=== PATIENT | male | born 1955 | race Caucasian/White ===

== ENCOUNTER → 2016-11-11 | Outpatient (CLI) | payer OTHER ==
--- NOTE | 2016-11-11 15:10 | CPEKG ---
Heart Rate: 78 RR Interval: 769 P-R Interval: 192 QRSD Interval: 94 QT Interval: 392 QTC Interval: 447 P Shirland: 55 QRS Shirland: 41 T Wave Shirland: 58 EKG Severity - NORMAL ECG - EKG Impression: SINUS RHYTHM Electronically Signed By: Eryn Cummings 11-Nov-2016 16:06:35
== END ==
LOC: FCP 14:59
PROVIDERS: ATTEND Specialist
DX: Z01.810 Encounter for preprocedural cardiovascular examination (principal)

== ENCOUNTER 2017-01-26 18:05 | Inpatient (IN) | payer OTHER ==
--- NOTE | 2017-01-26 18:26 | EDPHY ---
H & P Stated Complaint: SI Time Seen by Provider: 01/26/17 18:24 - Personal History Current Tetanus/Diphtheria Vaccine: Yes Current Tetanus Diphtheria and Acellular Pertussis (TDAP): Yes - Medical/Surgical History Hx Asthma: No Hx Chronic Respiratory Disease: No Hx Diabetes: No Hx Cardiac Disease: No Hx Renal Disease: No Hx Cirrhosis: No Hx Alcoholism: No Hx HIV/AIDS: No Hx Splenectomy or Spleen Trauma: No Other PMH: GERD, depression, cholesterol, chronic pain - Social History Smoking Status: Former smoker Constitutional: Initial Vital Signs Temperature (C) 36.5 C 01/26/17 18:08 Heart Rate 67 01/26/17 18:08 Respiratory Rate 14 01/26/17 18:08 Blood Pressure 142/80 H 01/26/17 18:08 O2 Sat (%) 95 01/26/17 18:08 O2 Delivery Mode Room Air Allergies/Adverse Reactions: Penicillins Allergy (Unknown, Verified 09/28/15 15:36) Home Medications: Medication Instructions Recorded Aspirin EC [Aspirin EC 81 mg (*)] 81 mg PO DAILY 01/26/17 FLUoxetine [Prozac 20 MG (*)] 60 mg PO DAILY 01/26/17 Gabapentin [Neurontin 300 MG (*)] 300 - 600 mg PO TID PRN 01/26/17 Herbals/Supplements -Info Only 1 ea PO DAILY 01/26/17 Zolpidem Tartrate [Ambien 10 mg] 10 mg PO HS PRN 01/26/17 buPROPion XL [Wellbutrin Xl] 150 mg PO DAILY 01/26/17 clonazePAM [Klonopin (*)] 0.5 mg PO TID PRN 01/26/17 lamoTRIgine [LamICTAL 100 MG (*)] 300 mg PO HS 01/26/17 Medical Decision Making ED Course/Re-evaluation: CHIEF COMPLAINT: Psychiatric evaluation HISTORY OF PRESENT ILLNESS: Patient with longstanding depression who states that his depression has been getting worse. There are some circumstances regarding recent separation from his and some difficulty raising his teenage son. He denies suicidality. He denies a plan for suicidality. He has never attempted suicide. He is calmed. Well-kept. Relaxed. And very cooperative. REVIEW OF SYSTEMS: A 10 point review of systems was performed and is negative with the exception of the elements mentioned in the history of present illness. PHYSICAL EXAM: General Appearance: Alert, well hydrated, appropriate, and non-toxic appearing. Head: Atraumatic without scalp tenderness or obvious injury Eyes: Pupils equal, round, reactive to light and accommodation, EOMI, no trauma , no injection. Ears: Clear bilaterally, no perforation, normal landmarks Nose: Atraumatic, no rhinorrhea, clear. Throat: There is no erythema or exudates, no lesions, normal tonsils, mucus membranes moist. Neck: Supple, 2+ carotid upstroke, nontender, no lymphadenopathy. Respiratory: No retractions, no distress, no wheezes, and no accessory muscle use. Lungs are clear to auscultation bilaterally. Cardiovascular: Regular rate and rhythm, no murmurs, rubs, or gallops. Bilateral carotid, radial, dorsalis pedis, and posterior tibial pulses intact. Good capillary refill all extremities. Gastrointestinal: Abdomen is soft, nontender, non-distended, no masses, no rebound, no guarding, no peritoneal signs. Musculoskeletal: Normal active ROM of all extremities, atraumatic. Neurological: Alert, appropriate, and interactive. The patient has normal DTRs and non-focal cranial nerves, motor, sensory, and cerebellar exam. Skin: No rashes, good turgor, no nodules on palpation. Past medical history: Depression Past surgical history: Noncontributory Family history: Noncontributory Social history: Recently , does not abuse tobacco drugs or alcohol, employed DIFFERENTIAL DIAGNOSIS: The differential diagnosis for the patient's depression included but was not limited to functional and major depression, situational depression, medication side effect, drugs, and alcohol abuse. MEDICAL DECISION MAKING: Patient is in no acute distress and is hemodynamically stable. We are awaiting psychiatric team's evaluation. Patient has known history of psychiatric disorders and is here for evaluation. I feel like this patient can most likely be treated as an outpatient but we will have him evaluated to make a final determination. He is well kept clean and making good decisions and not using abuse of substances. - Data Points Laboratory Results: Laboratory Results 01/26/17 18:34 01/26/17 18:34 01/26/17 01/26/17 01/26/17 18:51 18:34 18:34 WBC 7.62 10^3/uL 10^3/uL (3.80-9.50) RBC 5.33 10^6/uL 10^6/uL (4.40-6.38) Hgb 14.7 g/dL g/dL (13.7-17.5) Hct 44.1 % % (40.0-51.0) MCV 82.7 fL fL (81.5-99.8) MCH 27.6 pg L pg (27.9-34.1) MCHC 33.3 g/dL g/dL (32.4-36.7) RDW 15.3 % H % (11.5-15.2) Plt Count 244 10^3/uL 10^3/uL (150-400) MPV 10.3 fL fL (8.7-11.7) Neut % (Auto) 60.5 % % (39.3-74.2) Lymph % (Auto) 27.7 % % (15.0-45.0) Bonner % (Auto) 7.6 % % (4.5-13.0) Eos % (Auto) 3.0 % % (0.6-7.6) Baso % (Auto) 0.8 % % (0.3-1.7) Nucleat RBC Rel Count 0.0 % % (0.0-0.2) Absolute Neuts (auto) 4.61 10^3/uL 10^3/uL (1.70-6.50) Absolute Lymphs (auto) 2.11 10^3/uL 10^3/uL (1.00-3.00) Absolute Monos (auto) 0.58 10^3/uL 10^3/uL (0.30-0.80) Absolute Eos (auto) 0.23 10^3/uL 10^3/uL (0.03-0.40) Absolute Basos (auto) 0.06 10^3/uL 10^3/uL (0.02-0.10) Absolute Nucleated RBC 0.00 10^3/uL 10^3/uL (0-0.01) Immature Gran % 0.4 % % (0.0-1.1) Immature Gran # 0.03 10^3/uL 10^3/uL (0.00-0.10) Sodium 138 mEq/L mEq/L (134-144) Potassium 4.4 mEq/L mEq/L (3.5-5.2) Chloride 104 mEq/L mEq/L (97-110) Carbon Dioxide 23 mEq/l mEq/l (22-31) Anion Gap 11 mEq/L mEq/L (8-16) BUN 20 mg/dL mg/dL (7-23) Creatinine 1.1 mg/dL mg/dL (0.7-1.3) Estimated GFR > 60 Glucose 82 mg/dL mg/dL (70-100) Calcium 9.4 mg/dL mg/dL (8.5-10.4) Salicylates < 1.0 mg/dL L mg/dL (2.0-20.0) Urine Opiates Screen NEGATIVE (NEGATIVE) Acetaminophen < 10 mcg/mL L mcg/mL (10.0-30.0) Urine Barbiturates NEGATIVE (NEGATIVE) Ur Phencyclidine Scrn NEGATIVE (NEGATIVE) Ur Amphetamine Screen NEGATIVE (NEGATIVE) U Benzodiazepines Scrn NEGATIVE (NEGATIVE) Urine Cocaine Screen NEGATIVE (NEGATIVE) U Marijuana (THC) Screen NEGATIVE (NEGATIVE) Ethyl Alcohol < 10 mg/dL mg/dL (0-10) Medications Given: Discontinued Medications Lorazepam (Ativan) 1 mg PO EDNOW ONE Stop: 01/26/17 19:22 Last Admin: 01/26/17 19:21 Dose: 1 mg Departure - Departure Disposition: Other Psych, Not Angelica Clinical Impression: Severe major depression, Suicidal ideation Condition: Fair Referrals: Randy Chan MD [Primary Care Provider] - As per Instructions
[2017-01-26 18:46] LABS: % IMMATURE GRANULYOCYTES 0.4 % (0.0-1.1); ABSOLUTE IMMATURE GRANULOCYTES 0.03 10^3/uL (0.00-0.10); ADD DIFF? NO; ADD MORPH? NO; ADD SCAN? NO; ATYPICAL LYMPHOCYTE FLAG 0 (0-99); FRAGMENT RBC FLAG 0 (0-99); HEMATOCRIT 44.1 % (40.0-51.0); HEMOGLOBIN 14.7 g/dL (13.7-17.5); LEFT SHIFT FLG 0 (0-99); LIPEMIA HEMOLYSIS FLAG 80 (0-99); MEAN CELL HEMOGLOBIN 27.6 pg (27.9-34.1); MEAN CELL HEMOGLOBIN CONCENTR. 33.3 g/dL (32.4-36.7); MEAN CELL VOLUME 82.7 fL (81.5-99.8); MEAN PLATELET VOLUME 10.3 fL (8.7-11.7); PLATELET CLUMPS FLAG 10 (0-99); PLATELET COUNT 244 10^3/uL (150-400); RED BLOOD CELL COUNT 5.33 10^6/uL (4.40-6.38); RED CELL DISTRIBUTION WIDTH 15.3 % (11.5-15.2)
[2017-01-26] MEDS ORDERED: LORazepam 1 MG TAB ONE (18:48)
[2017-01-26] MEDS ORDERED: LORazepam 1 MG TAB PO ONE (19:21)
[2017-01-26 19:30] LABS: ANION GAP 11 mEq/L (8-16); CALCIUM 9.4 mg/dL (8.5-10.4); CARBON DIOXIDE 23 mEq/l (22-31); CHLORIDE 104 mEq/L (97-110); CREATININE 1.1 mg/dL (0.7-1.3); ETHANOL SERUM < 10 mg/dL (0-10); GLOMERULAR FILTRATION RATE > 60; GLUCOSE 82 mg/dL (70-100); POTASSIUM 4.4 mEq/L (3.5-5.2); SALICYLATE < 1.0 mg/dL (2.0-20.0); SODIUM 138 mEq/L (134-144)
[2017-01-26] MEDS ORDERED: ACETAMINOPHEN 325 MG TAB PO PRN (22:30)
[2017-01-26] MEDS ORDERED: LORazepam 0.5 MG TAB PO PRN (22:30)
[2017-01-26] MEDS ORDERED: NICOTINE POLACRILEX 2 MG GUM B PRN (23:38)
[2017-01-26] MEDS ORDERED: GABAPENTIN 300 MG CAP PO SCH (23:45)
[2017-01-26] MEDS: clonazePAM 0.5 MG TAB PO SCH (23:55)
[2017-01-27] MEDS: ASPIRIN EC 81 MG TAB PO SCH (08:54)
[2017-01-27] MEDS: clonazePAM 0.5 MG TAB PO SCH ×4 (08:54→21:32)
[2017-01-27] MEDS ORDERED: NON-FORMULARY NEW DRUG (Zolpidem Tartrate [Ambien 10 Mg] 10 MG) PO PRN (11:08)
[2017-01-27] MEDS ORDERED: FLUoxetine 20 MG CAP PO SCH ×2 (11:15→11:42)
[2017-01-27] MEDS ORDERED: IBUPROFEN 600 MG TAB PO PRN (11:45)
[2017-01-27] MEDS: buPROPion XL 150 MG TAB PO SCH (12:20)
[2017-01-27] MEDS: FLUoxetine 20 MG CAP PO SCH (12:20)
[2017-01-27] MEDS: GABAPENTIN 300 MG CAP PO SCH ×2 (16:34→21:32)
--- NOTE | 2017-01-27 16:46 | BAPA ---
[f rep st] ADMISSION PSYCHIATRIC ASSESSMENT DATE OF SERVICE: 01/27/2017 CHIEF COMPLAINT: "I think I got depressed again." HISTORY OF PRESENT ILLNESS: Patient is a 61-year-old, male, with a history of recurrent m ajor depression. He had taken a combination of Prozac and Wellbutrin for 5 or 6 years and states th at his mood had been generally stable. [facility] and he recently switched to seeing a local nurse practitioner, Yvette Duarte, who told him, per his report, that "those medica tions were inappropriate." He states that they had decreased the Prozac from 60 mg to 20 mg and the Wellbutrin XL from 300 mg to 150 mg and that he has noticed about 3-4 weeks of declining mood. The y started Lamictal prior to this and increased to 300 mg to help with his mood, both stability and q uality but also for his "impulsive explosive anger." He states that this is a longstanding trait fo r him but that it has been worse recently and even worse since his mood has been declining. He stat es that it occurs mostly at home but has occurred at work and he will experience a trigger typically in an interpersonal conflict. He states that he will then become "verbally aggressive and go from 0-60 in a second." He states that he has never been physical or destroyed any property but that he will yell and become very angry over relatively minor issues. He states that he then will calm down and anger will resolve fairly quickly also and he will feel guilty and ashamed. He states that thi s has been a primary issue in his relationship with his and that they have actually decided to separate recently in order to re-evaluate the relationship. He states this has been a stressor for him as well in thinking of doing that and that he has been sad over the implications of that for his marriage as well as his relationship with his 15-year-old son. He describes having had some thoughts of suicide which he describes as "kind of fantasies" in which he envisions driving his motorcycle into a bridge abutment "so my son won't know it was suicide." Mary mariscal expressed this to his therapist yesterday who advised that he come to the emergency department. Mary mariscal was evaluated by [facility] in the emergency department, found to meet criteria for admission. He was pl aced on an M1 hold and transferred to [address] [place] [address] for further evaluation. Today, he states that he wants to have his medications looked at and that he does not believe he is an imminent danger to himself but definitely wants to get back to feeling better. In addition to hi s depressed mood, he notes marginal energy and motivation and poor sleep without his medications. 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 PAST PSYCHIATRIC HISTORY: The [facility] He has most recently seen Yvette Duarte though states he intends to find a different practitioner. He sees César jackson or individual psychotherapy and he and his also see a couples therapist. He has had no previous psychiatric hospitalizations or suicide attempts. He had a remote alcohol an d drug treatment program which he completed after 28 days. He has previously taken Prozac, Wellbutr in, Zoloft, Lexapro, Cymbalta and Seroquel. He has not had trials of Abilify, lithium or Depakote. ALLERGIES: Penicillin. CURRENT MEDICATIONS: Prozac 20 mg daily, Wellbutrin XL 150 mg daily, clonazepam 0.5 mg at 1800 and h.s., Lamictal 300 mg h.s., gabapentin 600 mg three times daily, Ambien 10 mg h.s., and baby aspirin 1 a day. PAST MEDICAL HISTORY: Significant for hypertension and some chronic radicular back pain. SOCIAL HISTORY: Patient moved to [place] 2 years ago with his and son from [place]. He states that this was a lifestyle change as they felt like their son would have better experience and an ov erall safer environment in [place]. 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 He was born in [facility] but raised in [place] [facility]. He states he moved a lot as a child. He was in the [employer] for 3 years and has VA benefits with no service connection. He enjoys riding his [employer] [employer]. SUBSTANCE ABUSE HISTORY: Patient has remote history of alcohol and some drug use. 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 FAMILY HISTORY: Patient's mother and maternal grandfather suffer from depression. There is no fami ly history of suicide obtained. ADMISSION LABORATORY: CBC shows no significant abnormalities. Serum chemistries are normal. Urine drug screen is negative for all substances. Alcohol is less than detectable. MENTAL STATUS EXAMINATION: Reveals a healthy-appearing, adequately groomed, calm and cooperative [place] charline[place] male. He interacts well with the examiner, displaying good eye contact and overall normal s ocial skills. His affect is blunted, somewhat dysphoric, stable and appropriate. His mood is descr ibed as "depressed." His thought process is linear and goal directed. His thought content reveals no evidence of psychosis. He is alert and oriented to person, place, time, and situation, and his s ensorium is clear. His intellect appears to be average to above average as evidenced by his educati onal, occupational history, fund of knowledge, and vocabulary. He denies any active thoughts of ronak cide at this time. His insight and judgment appear to be good. IMPRESSION: Major depressive disorder, recurrent, severe without psychosis. Pending separation fro m , financial problems, occupational stress, possible family conflicts. Patient is a 61-year-old, male, with a history of recurrent major depression. He seems to have suffered a recurrence in the setting of significant psychosocial stress and then also simultan eously decreasing his antidepressants. I questioned whether they may have been considering a bipola r disorder though the patient does not think so. I do not elicit convincing symptoms of bipolar ill ness at this time. I reviewed with the patient potential options and he states he believes he did b est on his previous regimen. He prefers to go back to 300 mg of the Wellbutrin XL and 40 mg of the fluoxetine at this time. We will continue his other medicines as they are though. I have discussed with him the relative redundancy of the 3 HARPREET active agents and the possibility of consolidating t hese to at least 2. I believe this is a goal for outpatient treatment and is certainly not pressing at this time. Will engage in individual, group, and milieu psychotherapies and serial clinical int erviews to better understand his current level of dangerousness. He is on a 72 hour hold and I sofya mccann that he will be active in the treatment process. Estimated length of stay is 2-3 days. /[id number]/MODL
--- NOTE | 2017-01-27 18:47 | BCON ---
[f rep st] BEHAVIORAL HEALTH CONSULTATION INTERNAL MEDICINE CONSULTATION DATE OF CONSULTATION: 01/27/2017 REFERRING PHYSICIAN: Marianne Duong MD REASON FOR CONSULTATION: Medical clearance for inpatient behavioral health stay. HISTORY OF PRESENT ILLNESS: The patient came to the emergency department complaining of depression, which has been getting worse. He was evaluated by the mental health team and admitted for further psychiatric care. He currently is without any acute complaints. PAST MEDICAL HISTORY: 1. Anemia with considerable evaluation by drafter landscape, Dr. Jimenez. 2. Dyslipidemia. 3. Skin cancer. 4. 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 PAST SURGICAL HISTORY: He has had skin cancer excisions and he has had a reconstruction of his right thumb metacarpophalangeal joint. MEDICATIONS: Prior to admission. 1. Gabapentin 300-600 mg p.o. t.i.d. p.r.n. 2. Lamotrigine 300 mg p.o. q.h.s. 3. Clonazepam 0.5 mg p.o. t.i.d. p.r.n. 4. Bupropion XL 150 mg p.o. q. day. 5. Fluoxetine 60 mg p.o. q. day. 6. Zolpidem 10 mg p.o. q.h.s. p.r.n. 7. Aspirin 81 mg p.o. q. day. 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 He has a remote history of smoking and quit a long time ago. FAMILY HISTORY: Noncontributory. REVIEW OF SYSTEMS: A 10-point Review of Systems was conducted and was negative. PHYSICAL EXAM: VITAL SIGNS: Blood pressure is 127/84, heart rate is 61, respiratory rate is 12, oxygen saturation is 93% on room air, temperature is 36.2 degrees centigrade. His weight is 90.7 kg for a body mass index of 29.5. GENERAL: This is an overweight man, appears his chronologic age, cooperative, and in no acute distress. HEENT: Extraocular movements are intact. Pupils are equal, round, and reactive to light. Mucous membranes are moist. Dentition is in good condition. NECK: Supple. HEART: There is a regular rate and rhythm with no murmurs, rubs, or gallops. LUNGS: Clear to auscultation bilaterally. ABDOMEN: Soft, nontender, nondistended with normoactive bowel sounds. EXTREMITIES: There is no cyanosis, clubbing, or edema. He wears a soft splint on his right hand and wrist. There is a well-healed surgical incision over the right thumb metacarpophalangeal joint on the volar aspect. NEUROLOGIC: He is alert and oriented x3. Cranial nerves 2-12 are grossly intact. There is no focal weakness and sensation is intact to light touch. LABORATORY STUDIES: Drawn in the emergency department. CBC was overall within normal limits. He had a slight decrement of mean cellular hemoglobin and an elevated RDW. Serum chemistry revealed normal renal function and electrolytes. Toxicology screen in the serum was negative for salicylates, acetaminophen, or ethyl alcohol, and the urine was negative for any substances of abuse. ASSESSMENT/RECOMMENDATIONS: 1. Mental health issues pending further evaluation and management per Psychiatry and the mental health team. 2. Dyslipidemia. This was not at the threshold to benefit from statin medications. 3. Overweight status. 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 Given his history of dyslipidemia, it is in his best interest in terms of his health to not gain weight. Consider caution regarding psychiatric medications which would cause weight gain. However, his psychosocial stabilization is his primary priority. 4. Anemia has resolved. The large RDW indicates that he may have still activated bone marrow. This is consistent with a prior evaluation which showed an elevated erythropoietin. He is planning a colonoscopy to seek a source of blood loss. I see no medical contraindications to the patient's continued stay on the inpatient behavioral health unit or to any psychiatric medications or procedures. Thank you very much for including me in the care of this patient and please do not hesitate to contact me or the hospitalist service should there be a need for further medical evaluation. /[id number]/MODL MTDD
[2017-01-27] MEDS: lamoTRIgine 100 MG TAB PO SCH (21:31)
[2017-01-27] MEDS: ZOLPIDEM TARTRATE 5 MG TAB PO PRN (21:38)
[2017-01-28] MEDS: ASPIRIN EC 81 MG TAB PO SCH (08:40)
[2017-01-28] MEDS: buPROPion XL 150 MG TAB PO SCH (08:40)
[2017-01-28] MEDS: GABAPENTIN 300 MG CAP PO SCH ×3 (08:40→21:39)
[2017-01-28] MEDS: FLUoxetine 20 MG CAP PO SCH (08:41)
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
[2017-01-28] MEDS: clonazePAM 0.5 MG TAB PO SCH ×2 (16:33→21:39)
[2017-01-28] MEDS: lamoTRIgine 100 MG TAB PO SCH (21:39)
[2017-01-28] MEDS: ZOLPIDEM TARTRATE 5 MG TAB PO PRN (21:40)
[2017-01-29 06:05] VITALS: BP 114/74; PULSE 64; RESP 12; TEMP 97.5; O2SAT 94
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
[2017-01-29] MEDS: ASPIRIN EC 81 MG TAB PO SCH (08:53)
[2017-01-29] MEDS: buPROPion XL 150 MG TAB PO SCH (08:53)
[2017-01-29] MEDS: GABAPENTIN 300 MG CAP PO SCH (08:53)
[2017-01-29] MEDS: FLUoxetine 20 MG CAP PO SCH (08:53)
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
== END 2017-01-29 13:30 | disposition home or self-care (01) | DRG 885 ==
LOC: BBEH 23:10
PROVIDERS: ADMIT Psychiatry & Neurology Behavioral Neurology & Neuropsychiatry; ATTEND Psychiatry & Neurology Behavioral Neurology & Neuropsychiatry
DX: F33.2 Major depressive disorder, recurrent severe without psychotic features (principal); E78.5 Hyperlipidemia, unspecified; E66.3 Overweight; Z85.820 Personal history of malignant melanoma of skin
CPT/HCPCS: 80305; G0480

== ENCOUNTER → 2018-08-22 | Outpatient (CLI) | payer OTHER | LOC: FIMAGING 15:19 | PROVIDERS: ATTEND Family Medicine | DX: K40.90 Unilateral inguinal hernia, without obstruction or gangrene, not specified as recurrent (principal); N28.1 Cyst of kidney, acquired; M47.815 Spondylosis without myelopathy or radiculopathy, thoracolumbar region ==

== ENCOUNTER 2018-09-25 11:46 | Day surgery (SDC) | payer OTHER ==
--- NOTE | 2018-09-25 10:02 | PDHPUP ---
History & Physical Update H&P update statement: This history and physical update is based on an assessment of the patient which was completed after admission or registration (within 24 hours), but prior to the surgery/procedure. H&P update: H&P reviewed & patient examined, no change in patient's condition since H&P completed
[2018-09-25] MEDS ORDERED: ceFAZolin 2 GM/DEXTROSE 100 ML IV ONE (12:03)
[2018-09-25] MEDS ORDERED: LR 1,000 ML IV ONE (12:05)
[2018-09-25] MEDS ORDERED: LIDOCAINE 1% 2 ML INJ ID PRN (12:05)
[2018-09-25] MEDS ORDERED: EPINEPHrine 1 MG/ML INJ ONE (12:14)
[2018-09-25] MEDS ORDERED: BUPIVACAINE 0.25% 30 ML SDV ONE (12:14)
[2018-09-25] MEDS ORDERED: LIDOCAINE 1% 2 ML INJ ONE (12:34)
[2018-09-25] MEDS ORDERED: fentaNYL 100 MCG/2 ML INJ ONE ×2 (13:31→15:00)
[2018-09-25] MEDS ORDERED: MIDAZOLAM 2 MG/2 ML VIAL ONE (13:31)
[2018-09-25] MEDS ORDERED: PROPOFOL/EMULSION 500 MG/50 ML BOTTLE IV ONE (13:31)
[2018-09-25] MEDS ORDERED: NALOXONE HCL 0.4 MG/ML INJ IVP PRN (14:01)
--- NOTE | 2018-09-25 14:01 | PDANEPAE ---
ANE Past Medical History - Cardiovascular History Hx Hypertension: No Hx Arrhythmias: No Hx Chest Pain: No Hx Coronary Artery / Peripheral Vascular Disease: No Hx CHF / Valvular Disease: No Hx Palpitations: No - Pulmonary History Hx COPD: No Hx Asthma/Reactive Airway Disease: Yes Hx Recent Upper Respiratory Infection: No Hx Oxygen in Use at Home: No Hx Sleep Apnea: No - Neurologic History Hx Cerebrovascular Accident: No Hx Seizures: No Hx Dementia: No - Endocrine History Hx Diabetes: No - Renal History Hx Renal Disorders: No - Liver History Hx Hepatic Disorders: No - Neurological & Psychiatric Hx Hx Neurological and Psychiatric Disorders: No - Cancer History Hx Cancer: No - Congenital Disorder History Hx Congenital Disorders: No - GI History Hx Gastrointestinal Disorders: Yes Gastrointestinal History Comment: celiac disease. Gavin - Chronic Pain History Chronic Pain: Yes - Surgical History Prior Surgeries: Gavin 1998 ANE Review of Systems Review of Systems: - Exercise capacity METS (RN): 6 METS ANE Patient History - Allergies Allergies/Adverse Reactions: Penicillins Allergy (Unknown, Verified 09/28/15 15:36) - Home Medications Home Medications: Aspirin EC [Aspirin EC 81 mg (*)] 81 mg PO DAILY 01/26/17 [Last Taken 01/26/17] Herbals/Supplements -Info Only 1 ea PO DAILY 01/26/17 [Last Taken Unknown] Zolpidem Tartrate [Ambien 10 mg] 10 mg PO HS PRN 01/26/17 [Last Taken 01/25/17] clonazePAM [Klonopin (*)] 0.5 mg PO TID PRN 01/26/17 [Last Taken Unknown] lamoTRIgine [LamICTAL 100 MG (*)] 300 mg PO HS 01/26/17 [Last Taken 01/25/17] - NPO status NPO Since - Liquids (Date): 09/26/18 NPO Since - Liquids (Time): 00:00 NPO Since - Solids (Date): 09/25/18 NPO Since - Solids (Time): 19:00 - Smoking Hx Smoking Status: Former smoker ANE Labs/Vital Signs - Vital Signs Blood Pressure: 110/70 Heart Rate: 61 Respiratory Rate: 16 O2 Sat (%): 94 Height: 175.26 cm Weight: 74.843 kg ANE Physical Exam - Airway Neck exam: FROM Mallampati Score: Class 1 Mouth exam: normal dental/mouth exam - Pulmonary Pulmonary: no respiratory distress, no rales or rhonchi, clear to auscultation - Cardiovascular Cardiovascular: regular rate and rhythym, no murmur, rub, or gallop - ASA Status ASA Status: II ANE Anesthesia Plan Anesthesia Plan: general endotracheal anesthesia
[2018-09-25] MEDS ORDERED: HYDROCODONE/APAP 5/325 TAB PO PRN (14:06)
[2018-09-25] MEDS ORDERED: ONDANSETRON 4 MG/2 ML VIAL IVP PRN (14:06)
[2018-09-25] MEDS ORDERED: LR 500 ML IV PRN (14:06)
[2018-09-25] MEDS ORDERED: PROMETHAZINE HCL 25 MG/ML INJ IVP PRN (14:06)
[2018-09-25] MEDS ORDERED: ALBUTEROL 3 ML DEYVIAL IH PRN (14:06)
[2018-09-25] MEDS ORDERED: oxyCODONE IR 5 MG TAB PO PRN (14:06)
[2018-09-25] MEDS ORDERED: DEXAMETHASONE 4 MG/ML VIAL IVP PRN (14:06)
[2018-09-25] MEDS ORDERED: ONDANSETRON 4 MG/2 ML VIAL ONE (14:23)
[2018-09-25] MEDS ORDERED: KETOROLAC 30 MG/1 ML SDV ONE (14:23)
[2018-09-25] MEDS ORDERED: METOCLOPRAMIDE 10 MG/2 ML VIAL ONE (14:23)
[2018-09-25] MEDS ORDERED: DEXAMETHASONE 4 MG/ML VIAL ONE (14:23)
[2018-09-25] MEDS ORDERED: ROCURONIUM 50 MG/5 ML VIAL ONE (14:23)
[2018-09-25] MEDS ORDERED: RANITIDINE 50 MG/2 ML VIAL ONE (14:23)
[2018-09-25] MEDS ORDERED: PROPOFOL 200 MG/20 ML VIAL ONE (14:23)
[2018-09-25] MEDS ORDERED: SUGAMMADEX SODIUM 200 MG/2 ML VIAL IVP ONE (14:23)
[2018-09-25] MEDS ORDERED: LIDOCAINE 2% 5 ML SDV ONE (14:23)
--- NOTE | 2018-09-25 14:30 | POSTOPPROG ---
Post Op Note Date of Operation: 09/25/18 Surgeon: Umer Aviles Blankmaker: SELENA Tobias Anesthesiologist: Melina Anesthesia: GET(General Endotracheal) Pre-op Diagnosis: LIH Post-op Diagnosis: direct and femoral LIH Procedure: Robo assisted LIH c mesh Findings: small direct and small femoral Inf/Abcess present in the surg proc area at time of surgery?: No EBL: Minimal
--- NOTE | 2018-09-25 14:47 | POSTANESTH ---
Post Anesthetic Evaluation Cardiovascular Status: Normal, Stable, Similar to Pre-Op Cond Respiratory Status: Normal, Stable, Similar to Pre-op Cond. Level of Consciousness/Mental Status: Moderately Sleepy Pain Control: Adequate, Prn Tx Ordered Nausea/Vomiting Control: Adequate, Prn Tx Ordered Complications Possibly Related to Anesthesia: None Noted
[2018-09-25] MEDS: fentaNYL 100 MCG/2 ML INJ IVP PRN ×2 (15:02→15:18)
[2018-09-25] MEDS ORDERED: oxyCODONE IR 5 MG TAB ONE (16:27)
[2018-09-25 16:57] VITALS: BP 111/65
--- NOTE | 2018-09-27 13:21 | GOP ---
DATE OF OPERATION: 09/25/2018 SURGEON: Umer Aviles MD OLIVE BRINE TESTER: Nilda Lama CFA ANESTHESIA: General endotracheal. ANESTHESIOLOGIST: Frances Summers MD PREOPERATIVE DIAGNOSIS: Left inguinal hernia. POSTOPERATIVE DIAGNOSIS: Small direct and femoral left inguinal hernias. PROCEDURE PERFORMED: Robotic-assisted laparoscopic left inguinal hernia repair with mesh. FINDINGS: The patient had a small fat-containing direct and femoral hernia on that left side. Both successfully reduced and repaired with Bard 3D Light large-size mesh. SPECIMENS: None. ESTIMATED BLOOD LOSS: 5 cc. DESCRIPTION OF PROCEDURE: The patient was greeted in the preoperative suite. Once again, risks, juvenal efits, and alternatives were discussed. Consent was then signed. He was then brought back to the op erative suite, placed on the OR table in supine position. After all anesthesia machines, including S CDs, were on and functioning, [employer] time-out was performed. After successful ind uction of general anesthesia, the patient's abdomen was prepped and draped in typical sterile fashion . I commenced the procedure by making a supraumbilical cutdown through which the Veress needle was p assed. I achieved pneumoperitoneum to 15 mmHg, which was well tolerated by the patient. Through thi s, I then inserted an 8 mm trocar. Once successfully in the abdomen, I placed 2 additional 8 mm troc ars, 1 in the right and 1 in the left upper quadrant, both under direct visualization. I then placed the patient in gentle Trendelenburg position and the robot was successfully docked. I 1st turned my attention toward the right side, where no peritoneal defect consistent with an inguinal hernia was i dentified. I turned my attention toward the left. I then created my peritoneal flap just medial to the ASIS and carried this all the way to the pubic tubercle. I then opened my flap all the way down to the visceral sac and successfully skeletonized the cord structures. The patient had a small fat-c ontaining direct defect, as well as a small fat-containing femoral defect. These were both successfu lly reduced. Mesh was then brought into place. It was tacked to the pubic tubercle using an interru pted 2-0 Vicryl stitch, as well as on either side of the inferior epigastric vessels. The mesh was a llowed to lay flat with no appropriated kinks. The peritoneal defect was then closed with a running V-Loc suture. I then interrogated the abdomen and found no other significant findings. Pneumoperito neum was evacuated. Ports were removed. Skin was closed with running 4-0 Monocryl. Dermabond was p laced. The patient was then extubated in the operative suite, taken to PACU in satisfactory conditio n. DRAINS: None. COUNTS: All counts were reported as correct x2. /[id number]/MODL
== END 2018-09-25 16:45 | disposition home or self-care (01) ==
LOC: FSGY 11:46
PROVIDERS: ATTEND Surgery
PROC: 0YU64JZ Supplement Left Inguinal Region with Synthetic Substitute, Percutaneous Endoscopic Approach (ICD-10-PCS; principal; 2018-09-25 13:30)
PROC: 0YQ64ZZ Repair Left Inguinal Region, Percutaneous Endoscopic Approach (ICD-10-PCS; principal; 2018-09-25 13:30)
DX: K40.90 Unilateral inguinal hernia, without obstruction or gangrene, not specified as recurrent (principal)
CPT/HCPCS: C1781; J0171; J0690; J1100; J1885; J2250; J2405; J2704; J2765; J2780; J3010